=== PATIENT | male | born 1970 | race Caucasian/White ===

== ENCOUNTER 2016-12-16 02:25 | Emergency (ER) | payer SELFPAY ==
[~2016-12-16] VITALS: Ht 185.4 cm; Wt 154.2 kg
[2016-12-16 02:37] VITALS: BP_SYST 162
[2016-12-16] MEDS ORDERED: IBUPROFEN 800 MG TABLET PO ONE (03:00)
[2016-12-16 03:40] VITALS: BP_SYST 152
== END 2016-12-16 03:40 | disposition home or self-care (01) ==
LOC: SED 02:25
DX: S16.1XXA Strain of muscle, fascia and tendon at neck level, initial encounter (principal); S39.012A Strain of muscle, fascia and tendon of lower back, initial encounter; R03.0 Elevated blood-pressure reading, without diagnosis of hypertension; V53.5XXA Driver of pick-up truck or van injured in collision with car, pick-up truck or van in traffic accident, initial encounter; Y93.89 Activity, other specified; Y92.488 Other paved roadways as the place of occurrence of the external cause; Y99.8 Other external cause status
CPT/HCPCS: 99283

== ENCOUNTER 2018-02-14 07:44 | Emergency (ER) | payer MEDICAID ==
[~2018-02-14] VITALS: Ht 185.4 cm; Wt 156.5 kg
--- NOTE | 2018-02-14 07:47 | NUR ---
Pt c/o severe right flank pain x 1.5 hrs [employer]AP[employer]. Pt states I thought I was having a urinary tract infection, then the pain came on all of a sudden. Pt with hx of kidney stones. Pt moaning and writhing in pain.
--- NOTE | 2018-02-14 07:47 | NUR ---
Patient to ER bed 8 to gown for evaluation. Side rails up. Report given to Jone MICHEL.
[2018-02-14 07:48] VITALS: BP_SYST 188
--- NOTE | 2018-02-14 07:50 | NUR ---
Dr. Moraes at bedside.
--- NOTE | 2018-02-14 07:55 | NUR ---
# 20 gauge angiocath placed to LAC. Use of asceptic technique. Opsite placed over site. Blood return noted. Blood for lab drawn from site. Flushed with 10 cc of normal saline. No evidence of infiltration noted. Patient tolerated well.
[2018-02-14] MEDS ORDERED: DIPHENHYDRAMINE INJ 50 MG/ML VIAL IVP ONE (08:00)
[2018-02-14] MEDS ORDERED: KETOROLAC TROMETHAMINE 30 MG VIAL IVP ONE ×2 (08:00→09:15)
[2018-02-14] MEDS ORDERED: MORPHINE 4 MG/ML INJ. SYRINGE IVP ONE (08:00)
[2018-02-14 08:18] LABS: BASOPHILS # (AUTO) 0.1 K/uL (0.0-0.2); BASOPHILS % (AUTO) 1.1 % (0.0-2.0); EOSINOPHILS # (AUTO) 0.2 K/uL (0.0-0.4); HEMATOCRIT 47.8 % (36-54); HEMOGLOBIN 16.1 g/dL (14.0-18.0); LYMPHOCYTES # (AUTO) 2.2 K/uL (1.0-5.5); LYMPHOCYTES % (AUTO) 23.9 % (20.5-51.5); MEAN CORPUSCULAR HEMOGLOBIN 30 pg (27-31); MEAN CORPUSCULAR HGB CONC 34 % (32-36); MEAN CORPUSCULAR VOLUME 89 fL (79.0-98.0); MONOCYTES # (AUTO) 0.7 K/uL (0.0-1.0); MONOCYTES % (AUTO) 7.2 % (1.7-9.3); NEUTROPHILS % (AUTO) 65.8 % (40.0-70.0); PLATELET COUNT (AUTO) 199 K/uL (130-430); RED BLOOD CELL COUNT(AUTO) 5.38 MIL/uL (4.2-6.2); RED CELL DISTRIBUTION WIDTH 12.2 % (9.0-15.0); WHITE BLOOD COUNT (AUTO) 9.2 K/uL (4.8-10.8)
--- NOTE | 2018-02-14 08:20 | NUR ---
Pt states pain level has improved from 10/10 to 3/10.
[2018-02-14 08:23] LABS: CALCIUM 9.2 mg/dL (8.4-11.0); CREATININE 1.29 mg/dL (0.55-1.30); POTASSIUM 3.7 mmol/L (3.5-5.1)
[2018-02-14 08:24] LABS: PROTHROMBIN TIME 10.2 SECS (9.5-12.5)
[2018-02-14 08:28] LABS: ALBUMIN 4.2 g/dL (3.4-4.8); TOTAL BILIRUBIN 0.7 mg/dL (0.0-1.0)
--- NOTE | 2018-02-14 08:28 | NUR ---
Pt to CT.
--- NOTE | 2018-02-14 08:37 | NUR ---
Pt returns from CT. Pt in restroom to provide urine sample. Pt ambulatory with steady gait, verbalizes improvement in pain.
[2018-02-14] MEDS ORDERED: PHENAZOPYRIDINE HCL 100 MG TABLET PO ONE (08:45)
[2018-02-14 09:05] LABS: BILIRUBIN,URINE NEGATIVE (NEGATIVE); BLOOD, URINE 3+ (NEGATIVE); CLARITY/URINE SL HAZY (CLEAR); COLOR,URINE YELLOW (YELLOW); GLUCOSE,URINE NEGATIVE (NEGATIVE); KETONES,URINE NEGATIVE (NEGATIVE); LEUKOCYTE ESTERASE ,URINE NEGATIVE (NEGATIVE); NITRITE, URINE NEGATIVE (NEGATIVE); PH,URINE 6.5 (5.0-8.0); PROTEIN URINE TRACE (NEGATIVE); UROBILINOGEN,URINE 0.2 (0.2-1.0)
[2018-02-14 09:20] VITALS: BP_SYST 154
--- NOTE | 2018-02-14 09:20 | NUR ---
Patient given written and verbal discharge instructions and verbalizes understanding. ER MD discussed with patient the results and treatment provided. Patient in stable condition. ID arm band removed. IV catheter removed intact and dressing applied, no active bleeding. Rx of Zofran and [place] given. Patient educated on pain management and to follow up with PMD. Pain Scale 2/10. Opportunity for questions provided and answered. Medication side effect fact sheet provided. Pt educated to not combine alcohol with [place], to not drive or make any major life decisions after taking [place].
[2018-02-14 09:48] LABS: BACTERIA,URINE FEW /HPF (None Seen); MUCUS,URINE None Seen /LPF (None Seen); RBC,URINE 80-100 /HPF (0-3); YEAST,URINE None Seen /HPF (None Seen)
== END 2018-02-14 09:20 | disposition home or self-care (01) ==
LOC: SED 07:44
DX: N20.0 Calculus of kidney (principal); Z87.442 Personal history of urinary calculi
CPT/HCPCS: 36415; 74176; 80053; 81000; 83690; 85025; 85610; 93005; 96374; 96375; 96376; 99285; J1200; J1885; J2270